=== PATIENT | male | born 1985 | race Two or more races ===

== ENCOUNTER 2020-07-23 08:07 | Outpatient (CLI) | payer OTHER | END 2020-07-23 08:14 | disposition home or self-care (01) | LOC: SONOGRAMA 08:07 | PROVIDERS: ATTEND Internal Medicine Gastroenterology | DX: R10.13 Epigastric pain (principal); Z00.00 Encounter for general adult medical examination without abnormal findings ==

== ENCOUNTER 2021-08-01 07:55 | Outpatient (CLI) | payer OTHER | END 2021-08-01 07:57 | disposition home or self-care (01) | LOC: SONOGRAMA 07:55 | DX: R10.84 Generalized abdominal pain (principal) ==